=== PATIENT | male | born 1965 | race Hispanic/Latino ===

== ENCOUNTER 2024-01-13 20:00 | Emergency (ER) | payer OTHER ==
[~2024-01-13] VITALS: Ht 162.6 cm; Wt 68.0 kg
[2024-01-13] MEDS: ONDANSETRON 4MG INJ IVP ONE (20:27)
[2024-01-13] MEDS: LACTATED RINGERS 1000ML 1,000 ML IV SCH (20:28)
[2024-01-13 20:31] LABS: BASOPHILS # (AUTO) 0.03 K/uL (0.00-0.20); BASOPHILS % (AUTO) 0.3 % (0.0-5.0); EOSINOPHILS # (AUTO) 0.01 K/uL (0.00-0.70); EOSINOPHILS % (AUTO) 0.1 % (0.0-8.0); HEMATOCRIT 43.8 % (42-54); IMMATURE GRANULOCYTE ABSOLUTE 0.04 K/uL (0-1); LYMPHOCYTES # (AUTO) 1.4 K/uL (1.0-4.8); LYMPHOCYTES % (AUTO) 14.3 % (21.0-51.0); MEAN CORPUSCULAR HEMOGLOBIN 28.8 pg (27.0-33.0); MEAN CORPUSCULAR HGB CONC 34.7 g/dL (32.0-36.0); MEAN CORPUSCULAR VOLUME 83.1 fL (79-99); MONOCYTES # (AUTO) 1.5 K/uL (0.1-1.0); MONOCYTES % (AUTO) 15.6 % (3.0-13.0); NEUTROPHILS # (AUTO) 6.8 K/uL (1.8-7.7); NEUTROPHILS % (AUTO) 69.3 % (40.0-77.0); PLATELET COUNT (AUTO) 216 K/uL (130-400); RED BLOOD CELL COUNT(AUTO) 5.27 MIL/uL (4.50-6.20); RED CELL DISTRIBUTION WIDTH 13.7 % (11.0-15.5); WHITE BLOOD COUNT (AUTO) 9.8 K/uL (4.8-10.8)
[2024-01-13 20:38] LABS: INR 1.03 (0.85-1.15); PROTHROMBIN TIME 11.1 SEC (9.6-11.6)
[2024-01-13 20:39] LABS: PARTIAL THROMBOPLASTIN TIME 25.5 SEC (26.3-35.5)
[2024-01-13 20:41] LABS: CREATININE 1.8 mg/dL (0.5-1.3); POTASSIUM 3.8 mmol/L (3.5-5.1)
[2024-01-13 20:44] LABS: ALBUMIN 4.4 g/dL (3.5-5.0); BILIRUBIN,TOTAL 0.4 mg/dL (0.2-1.0); TOTAL PROTEIN, SERUM 8.2 g/dL (6.0-8.3)
[2024-01-13] MEDS: ACETAMINOPHEN 325 MG TAB PO ONE (21:03)
[2024-01-13] MEDS: ACETAMINOPHEN 325 MG TAB ONE (21:03)
[2024-01-13] MEDS: 0.9%NACL 1000ML 1,000 ML IV ONE (21:04)
[2024-01-13] MEDS ORDERED: ONDA-243 PO (21:53)
[2024-01-13 22:54] VITALS: BP 97/53; PULSE 84; RESP 16; O2SAT 100
== END 2024-01-13 22:23 | disposition home or self-care (01) ==
LOC: EDH 20:00
DX: E86.0 Dehydration (principal); R51.9 Headache, unspecified; E78.00 Pure hypercholesterolemia, unspecified; E11.9 Type 2 diabetes mellitus without complications; Z98.890 Other specified postprocedural states
CPT/HCPCS: 99285; 96374; 70450; 71045; 96361; 82550; 84484; 80053; 85025; 85610; 85730; 83605; 36415; 93005; J7120; J7030; J2405